=== PATIENT | female | born 1955 | race Caucasian/White ===

== ENCOUNTER 2022-11-05 18:19 | Emergency (ER) | payer MEDICARE, OTHER ==
[~2022-11-05] VITALS: Ht 162.6 cm; Wt 74.8 kg
--- NOTE | 2022-11-05 18:41 | NUR ---
animal control notified
[2022-11-05 18:46] VITALS: BP 105/62
--- NOTE | 2022-11-05 18:48 | ER.PDOC ---
General Chief Complaint: Requesting Medical Care Stated Complaint: RIGHT HAND LAC Time seen by MD: 18:41 Source: patient, family Exam Limitations: no limitations History of Present Illness Initial Comments 66 yo F was playing with her domestic, fully-vaccinated dog this evening and struck the dog's mouth with her R hand, has an irregular laceration on the dorsum of the right hand. Where: home Animal: dog, family pet Animal Appearance: appeared well Animal Immunizations: UTD Animal Disposition: Animal Known, Can Be Observed Context of Attack: playing with/teasing Severity of Injury: scratched (with tooth, see above.) Injury Location: upper extremity Associated Symptoms: pain on movement Past Medical History Medical History: other (tetanus is not ) Surgical History: knee (R) Family History Significant Family History: no pertinent family hx Social History Smoking: non-smoker Reviewed Nursing Reviewed: Vital Signs, Abn. Noted, Nursing Assessment Review of Systems Constitutional: no symptoms reported Eyes: no symptoms reported Ears: no symptoms reported Nose: no symptoms reported Mouth: no symptoms reported Throat: no symptoms reported Respiratory: no symptoms reported Cardiovascular: no symptoms reported Genitourinary: no symptoms reported Musculoskeletal: see HPI Skin: see HPI Psychiatric/Neurological: no symptoms reported All Other Systems: Reviewed and Negative Physical Exam General Appearance: alert, moderate distress Skin: laceration (the laceration is perhaps 3.5 cm or so, jagged/irregular, on the dorsum of the R hand. The tissued is intact over the underlying ligament, with the exception of a pinprick-sized area somewhat dorsolaterally. The overally amount and character of the skin is rather thin and seems unlikely to hold sutures well, as I have reflected on it at some length.) Neuro/Vascular/Tendon: no vascular compromise, sensation nml Psych: other (anxious. pain is somewhat out of proportion to the physical injury.) HEENT: atraumatic Neck: uninjured Resp/CVS: breath sounds nml Abdomen: non-tender (grossly benign) Back: other Extremities: ROM nml (there is no suggestion of underlying ligamentous damage; pt is able to flex and extend with some pain but no loss of function nor suggestion of bony injury) Results/Orders Results/Orders Orders - JUN STOCKTON MD Diph,Pertuss(Acell),Tet Vac/Pf (Boostrix (11/05/22 19:00) Naproxen (Naproxen 500mg) (11/05/22 18:49) Tramadol Hcl (Ultram) (11/05/22 18:49) Doxycycline Hyclate (Vibramycin) (11/05/22 18:49) Vital Signs Date Time Temp Pulse Resp B/P (MAP) Pulse Ox O2 Delivery O2 Flow Rate FiO2 11/05/22 18:46 97.9 65 105/62 (76) 93 Room Air* 0 21 11/05/22 18:46 97.9 65 21 11/05/22 18:46 65 19 93 Administered Medications Medications (Trade) Dose Ordered Sig/Oswald Route PRN Reason Start Time Stop Time Status Last Admin Dose Admin Diphtheria/ Tetanus/Acell Pertussis (Boostrix) 0.5 ml ONCE ONCE IM 11/05/22 19:00 11/05/22 19:01 UNV 11/05/22 19:24 0.5 ML Doxycycline Hyclate (Vibramycin) 100 mg STAT STAT PO 11/05/22 18:49 11/05/22 18:50 UNV 11/05/22 19:30 100 MG Naproxen (Naproxen 500mg) 500 mg STAT STAT PO 11/05/22 18:49 11/05/22 18:50 UNV 11/05/22 19:28 500 MG Tramadol HCl (Ultram) 50 mg STAT STAT PO 11/05/22 18:49 11/05/22 18:50 UNV 11/05/22 19:29 50 MG Progress Progress MDM: animal bite, soft tissue injury. I am not minded to suture here, as the skin does not seem favorable for such. Hand had dirt from playing with the dog and we will soak with some hibiclens for a period before steri-strips. The pinprick defect in the tissue overlying the ligament suggests a course of antibiotics would be appropriate; pt has a PCN allergy; we will use some doxycycline. Steri strip repair is good. I have counseled pt appropriately about return if sx of true infection develop, and steri-strip care. ER DEPART Departure Time of Disposition: 20:01 Disposition: 01 HOME / SELF CARE / HOMELESS Impression: Primary Impression: Dog bite of right hand Additional Impression: Laceration of right hand Condition: Stable Patient Instructions: Animal Bite, [id number], Sterile Tape Wound Closure Referrals: PCP,UNKNOWN (PCP) PRIMARY CARE PROVIDER Additional Instructions: Medications as directed. Follow up or return if symptoms worsen. Observe dog as instructed by animal tech. Duration or Time Spent with Pa: 15 min Problem Qualifiers JUN STOCKTON MD Nov 05, 2022 18:48
[2022-11-05] MEDS ORDERED: VIBRAMYCIN PO STA (18:49)
[2022-11-05] MEDS ORDERED: ULTRAM PO STA (18:49)
[2022-11-05] MEDS ORDERED: NAPROXEN 500MG PO STA (18:49)
[2022-11-05] MEDS ORDERED: BOOSTRIX IM ONE ×2 (19:00→19:06)
[2022-11-05] MEDS ORDERED: VIBRAMYCIN ONE (19:04)
[2022-11-05] MEDS ORDERED: NAPROXEN 500MG PO ONE (19:05)
[2022-11-05] MEDS ORDERED: ULTRAM ONE (19:05)
--- NOTE | 2022-11-05 19:05 | NUR ---
animal control at bedside
== END 2022-11-05 20:10 | disposition home or self-care (01) ==
LOC: ER 18:19
DX: S61.451A Open bite of right hand, initial encounter (principal); S61.411A Laceration without foreign body of right hand, initial encounter; W54.0XXA Bitten by dog, initial encounter; Y93.89 Activity, other specified; Y92.89 Other specified places as the place of occurrence of the external cause; Y99.8 Other external cause status
CPT/HCPCS: 90471; 90715; 99284